=== PATIENT | male | born 1970 | race Caucasian/White ===

== ENCOUNTER 2018-03-01 12:32 | Emergency (ER) | payer OTHER ==
[~2018-03-01] VITALS: Ht 177.8 cm; Wt 108.9 kg
[2018-03-01 16:06] LABS: ABSOLUTE BASOPHIL COUNT 0 /CUMM (0.0-0.2); ABSOLUTE EOSINOPHIL COUNT 0.2 /CUMM (0.0-0.7); ABSOLUTE GRANULOCYTE CT 4.4 /CUMM (1.4-6.5); ABSOLUTE LYMPH COUNT 2.3 /CUMM (1.2-3.4); ABSOLUTE MONOCYTE COUNT 0.6 /CUMM (0.10-0.60); BASOPHIL % 0.2 % (0.0-2.0); EOSINOPHIL % 2.6 % (0-5); GRANULOCYTE % 58.5 % (42.2-75.2); MEAN CORPUSCULAR HGB 26.8 PG (27.0-31.0); MEAN CORPUSCULAR HGB CONC 33.8 G/DL (33.0-37.0); MEAN CORPUSCULAR VOLUME 79.4 FL (80.0-94.0); MEAN PLATELET VOLUME 7.4 FL (7.4-10.4); PLATELET COUNT 278 /CUMM (130-400); RBC DISTRIBUTION WIDTH 13.3 % (11.5-14.5); RED BLOOD CELL CT 5.92 /CUMM (4.70-6.10); WHITE BLOOD CELL COUNT 7.5 /CUMM (4.8-10.8)
--- NOTE | 2018-03-01 16:09 | RADIOLOGY REPORT ---
EXAMINATION: XR CHEST CLINICAL INFORMATION: Chest pain COMPARISON: None TECHNIQUE: 2 views of the chest were obtained. FINDINGS: Heart size is normal. Mediastinal contours are normal. Lungs are clear without consolidation, effusion or pneumothorax. Visualized osseous structures appear intact. IMPRESSION: No acute cardiopulmonary process.
--- NOTE | 2018-03-01 17:11 | ED GENERAL ADULT ---
History of Present Illness General Chief Complaint: General Adult Stated Complaint: CP,EAR INFECTION,TROUBLE SWALLOWING,STOMACH PAIN Source: patient Exam Limitations: no limitations Vital Signs & Intake/Output Vital Signs & Intake/Output Vital Signs Date Time Temp Pulse Resp B/P B/P Pulse O2 O2 Flow FiO2 Mean Ox Delivery Rate 03/01 1756 97.4 56 18 109/81 96 03/01 1242 97.6 57 20 115/77 100 Room Air Allergies Coded Allergies: No Known Allergies (03/01/18) Reconcile Medications Dexlansoprazole (Dexilant) 30 MG CAP.BP 1 CAP PO BID REFLUX Triage Note: PT TO ED C/O LEFT EAR PAIN X A FEW DAYS. C/O CHEST PAIN WITH SWALLOWING. STATES WHEN HE SWALLOWS HE FEELS IT IN HIS CHEST AND THEN IT GETS TIGHT. "I FEEL LIKE I HAVE FOOD STUCK" ALSO C/O FEELING LETHARGIC. DISTRESS NOTED. EKG DONE. Triage Nurses Notes Reviewed? yes HPI: 48-year-old male with history of GERD taking pantoprazole presents emergency department reporting this morning after having pancakes he had felt pain in his upper abdomen as though his food could not go down. He described performing a Valsalva maneuver to help push the food down. He states he has any anything since then. He states this has been happening after swallowing food typically. However, he states that this is the worst that it has ever been. He denies any significant medical history or allergies. Past History Travel History Traveled to [place] past 21 day No Medical History Any Pertinent Medical History? see below for history Respiratory: asthma Gastrointestinal: GERD Surgical History Surgical History: non-contributory Psychosocial History What is your primary language Citizen Of [place] Tobacco Use: Quit >30 days ago ETOH Use: denies use Illicit Drug Use: denies illicit drug use Family History Hx Contributory? No Review of Systems Review of Systems Constitutional: Reports: see HPI. EENTM: Reports: no symptoms. Respiratory: Reports: no symptoms. Cardiovascular: Reports: no symptoms. GI: Reports: see HPI. Genitourinary: Reports: no symptoms. Musculoskeletal: Reports: no symptoms. Skin: Reports: no symptoms. Neurological/Psychological: Reports: no symptoms. Hematologic/Endocrine: Reports: no symptoms. Immunologic/Allergic: Reports: no symptoms. All Other Systems: Reviewed and Negative Physical Exam Physical Exam General Appearance: well developed/nourished, no apparent distress, alert, awake , comfortable Head: atraumatic, normal appearance Eyes: Bilateral: normal appearance. Ears, Nose, Throat: hearing grossly normal Neck: normal inspection, full range of motion Respiratory: normal breath sounds, chest non-tender, no respiratory distress, lungs clear Cardiovascular: regular rate/rhythm, normal peripheral pulses Peripheral Pulses: 3+ radial (R), 3+ radial (L) Gastrointestinal: normal bowel sounds, soft, minimally tender epigastric area Back: normal inspection, normal range of motion, no vertebral tenderness Extremities: normal inspection, normal capillary refill, normal range of motion Neurologic/Psych: no motor/sensory deficits, awake, alert, oriented x 3, normal gait, normal mood/affect Skin: intact, normal color, warm/dry Core Measures ACS in differential dx? No CVA/TIA Diagnosis: No Sepsis Present: No Sepsis Focused Exam Completed? No Progress Differential Diagnoses I considered the following diagnoses in my evaluation of the patient: [ pancreatitis, GERD, esophagitis, AMI, gastritis] Plan of Care: Orders Procedure Date/time Status TROPONIN LEVEL 03/01 1528 Complete LIPASE 03/01 1528 Complete COMPREHENSIVE METABOLIC PANEL 03/01 1528 Complete CBC WITHOUT DIFFERENTIAL 03/01 1528 Complete EKG 03/01 1233 Active Laboratory Tests 03/01/18 1549: Anion Gap 10, Estimated GFR > 60, BUN/Creatinine Ratio 19.1, Glucose 92, Calcium 9.3, Total Bilirubin 0.6, AST 31, ALT 45, Alkaline Phosphatase 57, Troponin I < 0.01, Total Protein 7.3, Albumin 4.2, Globulin 3.1, Albumin/Globulin Ratio 1.4, Lipase 227 Bloodwork unremarkable. CXR unremarkable, trop neg, ekg neg Pt to follow up outpatient with GI doctor tomorrow. Advised to take dexilant BID and liquid/bland diet for the time being. Return to the ED with any new or worsening symptoms including but not limited to chest pain, SOB, n/v/d, or other concerning symptoms. Diagnostic Imaging: Viewed by Me: Radiology Read. Discussed w/RAD: Radiology Read. Radiology Impression: PATIENT: SANDRA HESS PRESENT AGE: 48 PATIENT ACCOUNT NO: [id number] : 71 LOCATION: [facility] ORDERING PHYSICIAN: Jered CHIN SERVICE DATE: 03/01/18-1657 EXAM TYPE: RAD - XRY -CHEST XRAY, TWO VIEWS EXAMINATION: XR CHEST CLINICAL INFORMATION: Chest pain COMPARISON: None TECHNIQUE: 2 views of the chest were obtained. FINDINGS: Heart size is normal. Mediastinal contours are normal. Lungs are clear without consolidation, effusion or pneumothorax. Visualized osseous structures appear intact. IMPRESSION: No acute cardiopulmonary process. DICTATED BY: Patt Lawton MD DATE/TIME DICTATED:03/01/181604 JOIST SETTER:VINICIO DATE/TIME TRANSCRIBED:03/01/181604 CONFIDENTIAL, DO NOT COPY WITHOUT APPROPRIATE AUTHORIZATION. <Electronically signed in Other Vendor System> SIGNED BY: Patt Lawton MD 03/01/185 Initial ED EKG: normal sinus rhythm Departure Departure Disposition: HOME OR SELF CARE Condition: Stable Clinical Impression Primary Impression: GERD (gastroesophageal reflux disease) Qualifiers: Esophagitis presence: without esophagitis Qualified Code: K21.9 - Gastro-esophageal reflux disease without esophagitis Referrals: Patient Has No Primary Care Dr (PCP/Family) Additional Instructions: Take Dexilant twice daily. Liquid diet, can try a bland BRAT diet (bananas, rice, applesauce, toast). Follow-up tomorrow with GI doctor for potential endoscopy. Return to the emergency department with any new or worsening symptoms. Departure Forms: Customer Survey General Discharge Information Prescriptions: Current Visit Scripts Dexlansoprazole (Dexilant) 1 CAP PO BID #[id number] CAP Critical Care Note Critical Care Note Critical Care Time: non-applicable
[2018-03-01] MEDS ORDERED: DEXILANT30 M1 PO (17:42)
[2018-03-01 17:56] VITALS: BP 109/81
== END 2018-03-01 18:01 ==
LOC: ERH 12:32
PROVIDERS: Physician Assistant
DX: K21.9 Gastro-esophageal reflux disease without esophagitis (principal); R10.10 Upper abdominal pain, unspecified
CPT/HCPCS: 71046; 93005; 93010